=== PATIENT | female | born 1955 | race Caucasian/White ===

== ENCOUNTER → 2016-09-03 | Outpatient (CLI) | payer OTHER ==
[~2016-09-03] MED LIST: ASPI-515 PO; FOLI0.4T2 PO; LOSA50TA6 PO; METO25TA35 PO; ROSU5TAB PO; VITAMIN E PO
== END | disposition home or self-care (01) ==
LOC: RAD 15:13
PROVIDERS: ATTEND Internal Medicine Hematology & Oncology
DX: R76.12 Nonspecific reaction to cell mediated immunity measurement of gamma interferon antigen response without active tuberculosis (principal)

== ENCOUNTER → 2016-10-28 | Outpatient (CLI) | payer OTHER ==
[2016-10-28 12:07] LABS: BLOOD UREA NITROGEN 17 mg/dL (7-18)
== END | disposition home or self-care (01) ==
LOC: LAB 11:45
PROVIDERS: ATTEND Ophthalmology
DX: I10 Essential (primary) hypertension (principal); C44.119 Basal cell carcinoma of skin of left eyelid, including canthus
CPT/HCPCS: 36415; 80048; 85025